=== PATIENT | male | born 1975 | race Caucasian/White ===

== ENCOUNTER 2018-02-24 10:29 | Emergency (ER) | payer OTHER ==
[2018-02-24 11:08] VITALS: BP 138/81
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
== END 2018-02-24 11:30 | disposition home or self-care (01) ==
LOC: UCEAST 10:29
DX: S41.151A Open bite of right upper arm, initial encounter (principal); W50.3XXA Accidental bite by another person, initial encounter; Y92.219 Unspecified school as the place of occurrence of the external cause; Y99.0 Civilian activity done for income or pay
CPT/HCPCS: 99202; G0463